=== PATIENT | female | born 1930 | race Caucasian/White ===

== ENCOUNTER 2017-01-27 14:54 | Emergency (ER) | payer MEDICARE, OTHER ==
[~2017-01-27] VITALS: Ht 152.4 cm; Wt 45.0 kg
[~2017-01-27 14:54] MED LIST: ANTIVERT25 MG OR; ASPIRIN EC325 MG PO; ASPIRIN325 MG PO; FOSAMAX70 MG PO; LISINOPRIL5 MG PO; METOPROL TAR25 MG PO; PRILOSEC20 MG/CAP PO; SIMVASTATIN; VITAMIN D2000 UNI1 OR; ZOCOR20 M1 PO; ZOFRAN ODT8 MG SL; [UNRECOGNIZED DRUG - OTHER]; [UNRECOGNIZED DRUG - REMARK]
[2017-01-27 15:50] VITALS: BP 162/72
== END 2017-01-27 15:54 | disposition home or self-care (01) ==
LOC: ED 14:54
DX: S51.811A Laceration without foreign body of right forearm, initial encounter (principal); I10 Essential (primary) hypertension; E78.5 Hyperlipidemia, unspecified; W22.8XXA Striking against or struck by other objects, initial encounter; Y92.007 Garden or yard of unspecified non-institutional (private) residence as the place of occurrence of the external cause; Z79.82 Long term (current) use of aspirin

== ENCOUNTER → 2018-03-28 | Outpatient (REF) | payer MEDICARE, OTHER | END | disposition home or self-care (01) | LOC: LAB 08:02 | PROVIDERS: ATTEND Internal Medicine Endocrinology, Diabetes & Metabolism | DX: E21.0 Primary hyperparathyroidism (principal) ==